=== PATIENT | male | born 1975 | race Hispanic/Latino ===

== ENCOUNTER 2016-11-08 17:50 | Emergency (ER) | payer OTHER ==
[2016-11-08 17:57] VITALS: RESP 16; TEMP 98.2; O2SAT 100
[2016-11-08] MEDS ORDERED: Oxycodone/Acetaminophen 5/325 mg Tab ONE (18:32)
[2016-11-08] MEDS ORDERED: Oxycodone/Acetaminophen 5/325 mg Tab PO STA (18:32)
--- NOTE | 2016-11-08 18:35 | ED PDOC ---
HPI: Dental Pain/Injury Time Seen by Provider: 11/08/16 17:50 Chief Complaint (Nursing): Dental Pain Chief Complaint (Provider): Dental Pain History Per: Patient History/Exam Limitations: no limitations Onset/Duration Of Symptoms: Days Current Symptoms Are (Timing): Still Present Additional Complaint(s): 41 y/o male presents to the emergency department with a complaint of dental pain to the right upper region with decay after cracking a tooth. Reports he has a root canal scheduled for next Monday, but unable to tolerate pain. Patient was seen by two doctors and written a prescription for Vicodin which he had finished but needs stronger medications because it was not enough to relief all pain. Reports he finished Augmentin this morning. Denies any other medical complaint. Past Medical History Reviewed: Historical Data, Nursing Documentation, Vital Signs Vital Signs: Last Vital Signs Temp 98.2 F 11/08/16 17:54 Pulse 117 H 11/08/16 17:54 Resp 16 11/08/16 17:54 BP 153/97 H 11/08/16 17:54 Pulse Ox 100 11/08/16 17:54 - Medical History PMH: Anxiety - Family History Family History: States: Unknown Family Hx - Social History Current smoker - smoking cessation education provided: No Alcohol: Social Drugs: Denies - Home Medications Home Medications: Ambulatory Orders Medication Instructions Recorded Clindamycin [Cleocin] 300 mg PO TID #30 cap 05/30/15 Naproxen [Naprosyn] 500 mg PO Q12H #20 tab 05/30/15 Clindamycin [Cleocin] 1 tab PO Q6 #40 cap 11/08/16 Naproxen [Naprosyn Tab] 375 mg PO Q8 PRN #21 tab 11/08/16 - Allergies Allergies/Adverse Reactions: Allergies Allergy/AdvReac Type Severity Reaction Status Date / Time No Known Allergies Allergy Verified 11/08/16 17:53 Review of Systems ROS Statement: Except As Marked, All Systems Reviewed And Found Negative ENT: Positive for: Mouth Pain (Pain to the right upper region of the teeth) Physical Exam - Reviewed Nursing Documentation Reviewed: Yes Vital Signs Reviewed: Yes - Physical Exam Appears: Positive for: Non-toxic, No Acute Distress Head Exam: Positive for: ATRAUMATIC, NORMAL INSPECTION, NORMOCEPHALIC Skin: Positive for: Normal Color, Warm, Dry ENT: Positive for: Normal ENT Inspection, Other (Minimal dental caries noted to the right upper molar. No sign of gingivitis or abscess. ) Neck: Positive for: Normal, Supple Neurologic/Psych: Positive for: Alert, Oriented - ECG O2 Sat by Pulse Oximetry: 100 (RA) Pulse Ox Interpretation: Normal Medical Decision Making Medical Decision Making: Time: 17:50 Initial Impression: Dental pain Initial Plan: --Percocet 5/325 mg PO --Revaluation Time: 18:36 Upon provider reevaluation patient is medically stable, and requires no further treatment in the ED at this time. Patient will be discharged home with Rx for Cleocin and Naproxen 375 mg. Counseling was provided and all questions were answered regarding diagnosis and need for follow up with dentist. There is agreement to discharge plan. Return if symptoms persist or worsen. Clinical Impression: Toothache Scribe Attestation: Documented by Sury Chowdhury, acting as a scribe for Shell Reddy PA-C. Provider Scribe Attestation: All medical record entries made by the Scribe were at my direction and personally dictated by me. I have reviewed the chart and agree that the record accurately reflects my personal performance of the history, physical exam, medical decision making, and the department course for this patient. I have also personally directed, reviewed, and agree with the discharge instructions and disposition. Disposition - Clinical Impression Clinical Impression: Toothache Counseled Patient/Family Regarding: Need For Followup, Rx Given - Disposition Disposition: Routine/Home Disposition Time: 18:36 Condition: FAIR Prescriptions: Clindamycin [Cleocin] 1 tab PO Q6 #40 cap Naproxen [Naprosyn Tab] 375 mg PO Q8 PRN #21 tab PRN Reason: Pain, Moderate (4-7) Instructions: Toothache (ED)
[2016-11-08 18:52] VITALS: BP 149/86; PULSE 87
== END 2016-11-08 18:52 | disposition home or self-care (01) ==
LOC: H.ER 17:50
DX: K08.89 Other specified disorders of teeth and supporting structures (principal)